=== PATIENT | male | born 2000 | race Caucasian/White ===

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

== ENCOUNTER 2020-07-14 12:50 | Emergency (ER) | payer OTHER ==
[~2020-07-14] VITALS: Ht 185.4 cm; Wt 77.3 kg
[~2020-07-14 12:50] MED LIST: NORCO 325 MG-51 TAB PO
[2020-07-14 12:56] VITALS: TEMP 97.3
[2020-07-14 14:20] VITALS: BP 129/67; PULSE 70
== END 2020-07-14 14:50 | disposition home or self-care (01) ==
LOC: COL.ER 12:50
DX: S00.33XA Contusion of nose, initial encounter (principal); W50.0XXA Accidental hit or strike by another person, initial encounter; Y93.66 Activity, soccer